=== PATIENT | female | born 2005 | race Caucasian/White ===

== ENCOUNTER 2023-08-14 21:44 | Emergency (ER) | payer OTHER, BC ==
[~2023-08-14] VITALS: Ht 162.6 cm; Wt 59.9 kg
[2023-08-14 21:57] VITALS: BP_SYST 104; PULSE 60; RESP 16; TEMP 97.7; O2SAT 100
[2023-08-14 22:31] LABS: BILIRUBIN,URINE NEGATIVE (NEGATIVE); CLARITY/URINE CLOUDY (CLEAR); COLOR,URINE YELLOW (YELLOW); GLUCOSE,URINE TRACE (NEGATIVE); KETONES,URINE TRACE (NEGATIVE); LEUKOCYTE ESTERASE ,URINE 1+ (NEGATIVE); NITRITE, URINE POSITIVE (NEGATIVE); PH,URINE 7.5 (5.0-8.0); PROTEIN URINE 2+ (NEGATIVE)
[2023-08-14 22:32] LABS: BLOOD, URINE TRACE (NEGATIVE)
[2023-08-14 22:40] LABS: BACTERIA,URINE MANY /HPF (None Seen); MUCUS,URINE 1+ /LPF (None Seen); WBC,URINE 20-50 /HPF (0-3)
[2023-08-14] MEDS ORDERED: NITR-85 PO (23:57)
[2023-08-15] MEDS: NITROFURANTOIN MONOHYD/M-CRYST 100 MG CAPSULE (MacroBID) PO ONE (00:15)
[2023-08-15 00:18] VITALS: BP_SYST 110; PULSE 59; RESP 16; TEMP 98.2; O2SAT 99
== END 2023-08-15 00:18 | disposition home or self-care (01) ==
LOC: SED 21:44
DX: N39.0 Urinary tract infection, site not specified (principal); R30.9 Painful micturition, unspecified; Z79.899 Other long term (current) drug therapy
CPT/HCPCS: 81000; 81001; 81015; 81025; 87086; 99283

== ENCOUNTER 2023-08-25 21:25 | Emergency (ER) | payer BC, OTHER ==
[~2023-08-25] VITALS: Ht 162.6 cm; Wt 61.2 kg
[~2023-08-25 21:25] MED LIST: NITR-85 PO
[2023-08-25 21:59] VITALS: BP_SYST 102; PULSE 75; RESP 16; TEMP 98.5; O2SAT 98
[2023-08-25] MEDS: DIPHTH,PERTUSS(ACELL),TET VAC 0.5 ML VIAL (Tdap) I.M. ONE (23:37)
[2023-08-26 00:07] VITALS: BP_SYST 124; PULSE 85; RESP 22; TEMP 97.7; O2SAT 97
== END 2023-08-26 00:07 | disposition home or self-care (01) ==
LOC: SED 21:25
DX: S00.01XA Abrasion of scalp, initial encounter (principal); Z23 Encounter for immunization; W22.8XXA Striking against or struck by other objects, initial encounter; Y93.89 Activity, other specified; Y92.89 Other specified places as the place of occurrence of the external cause; Y99.8 Other external cause status
CPT/HCPCS: 90715; 99283

== ENCOUNTER 2023-09-17 15:22 | Emergency (ER) | payer BC, OTHER ==
[~2023-09-17] VITALS: Ht 162.6 cm; Wt 61.2 kg
[2023-09-17] MEDS ORDERED: NITR-85 PO (15:54)
[2023-09-17] MEDS ORDERED: PHEN-726 PO (15:54)
[2023-09-17 16:00] VITALS: BP_SYST 102; PULSE 64; RESP 18; TEMP 97.2; O2SAT 100
== END 2023-09-17 16:05 | disposition home or self-care (01) ==
LOC: SED 15:22
DX: N39.0 Urinary tract infection, site not specified (principal)
CPT/HCPCS: 99283